=== PATIENT | female | born 1990 | race Caucasian/White ===

== ENCOUNTER → 2023-07-14 11:07 | Outpatient (CLI) | payer OTHER, SELFPAY ==
--- NOTE | 2023-07-14 11:12 | DI.MRI.S_ITS ---
PROCEDURE: MR WRIST LT WO CON INDICATIONS: WRIST INJURY TECHNIQUE: Noncontrast coronal proton density fast spin echo and T2 fast spin echo with fat saturation; coronal 3-D gradient echo, axial T1 spin echo and T2 fast spin echo with fat saturation, sagittal T1 spin echo through the wrist. COMPARISON: None. FINDINGS: Image quality: Limited evaluation secondary to patient motion. Bones and cartilage: The carpal bones are normally aligned. No bone marrow contusions or fractures. No evidence for avascular necrosis. Overlying cartilage surfaces appear normal. Small amount of fluid within the pisiform recess. Carpal ligaments: The scapholunate ligament is not visualized, likely torn. No widening of the scapholunate interval. The lunotriquetral ligament is intact. Triangular fibrocartilage complex: The triangular fibrocartilage appears intact. The adjacent meniscal homolog appears normal in the absence of intra-articular contrast. The extensor carpi ulnaris tendon is normal in location and morphology. Tendons and soft tissues: The carpal tunnel structures appear normal, including the median nerve. The ulnar nerve appears normal within Guyon's canal. There is ulnar subluxation of the extensor carpi ulnaris at the level of the ulnar groove. Mild tendinosis of the extensor carpi ulnaris at the ulnar groove. IMPRESSION: 1. Somewhat limited evaluation given patient motion. 2. Tear of the scapholunate ligament. 3. Mild tendinosis and ulnar subluxation of the extensor carpi ulnaris at the level of the ulnar groove. Dictated by: Sabrina Beal M.D. on 07/14/2023 at 20:02 Approved by: Sabrina Beal M.D. on 07/14/2023 at 20:12
== END ==
PROVIDERS: Referring Provider Student in an Organized Health Care Education/Training Program; Visit Provider Student in an Organized Health Care Education/Training Program
DX: S63.592A Other specified sprain of left wrist, initial encounter (principal); X58.XXXA Exposure to other specified factors, initial encounter
CPT/HCPCS: 73221